=== PATIENT | female | born 1990 | race Hispanic/Latino ===

== ENCOUNTER 2023-11-05 03:38 | Emergency (ER) | payer OTHER ==
[2023-11-05] MEDS ORDERED: ACETAMINOPHEN 500 MG TAB ONE (03:50)
[2023-11-05] MEDS ORDERED: MORPHINE 2 MG/ML SYR ONE ×2 (03:50→06:48)
[2023-11-05] MEDS ORDERED: ONDANSETRON 4 MG/2 ML VIAL ONE ×2 (03:50→04:15)
[2023-11-05] MEDS ORDERED: NA CHLORIDE 0.9% 1,000 ML ONE ×2 (03:51→04:16)
[2023-11-05] MEDS ORDERED: MORPHINE 4 MG/ML SYR ONE ×2 (04:16→05:32)
[2023-11-05 04:17] LABS: Specific Gravity 1.012 (1.005-1.030); Urine Bacteria <20 /HPF (<20); Urine Bilirubin NEGATIVE (Negative); Urine Blood Negative (Negative); Urine Clarity Extremely Turbid (Clear); Urine Color Colorless (Yellow); Urine Culture Reflex Order REFLEXED; Urine Glucose NEGATIVE (Negative); Urine Ketones NEGATIVE (Negative); Urine Microscopic Reflex YN ORDER UMIC; Urine Mucus Slight /HPF (None Seen); Urine Nitrite NEGATIVE (Negative); Urine Protein NEGATIVE (Negative); Urine RBC <5 /HPF (None Seen); Urine Urobilinogen Normal (Normal); Urine Yeast (Budding) Trace /HPF (None Seen)
[2023-11-05 04:20] LABS: Absolute Eosinophils 0.1 K/uL (0-0.5); Absolute Lymphocytes (CBC) 2.6 K/uL (0.7-4.9); Absolute Monocytes 0.8 K/uL (0.1-1.3); Basophils % 0.3 % (0-1.3); Hematocrit 32.8 % (36.0-45.0); Lymphocytes % 22.5 % (15.3-44.8); MCH 30.4 pg (27.0-35.0); MCHC 33.7 g/dL (32.0-36.0); MCV 90.2 fL (80-100); MPV 8.5 fL (7.6-11.3); Monocytes % 6.8 % (3.3-12.3); Neutrophils % 69.4 % (41.7-73.7); Platelets 222 thou/uL (152-406); RBC Red Blood Cell Count 3.64 M/uL (3.86-4.86); Red Cell Distribution Width 13.4 % (12.1-15.2)
[2023-11-05 04:29] LABS: Albumin 2.8 g/dL (3.4-5.0); Albumin/Globulin Ratio 0.7 (1.1-1.8); Anion Gap 9.7 mEq/L (5.0-15.0); Bilirubin Total 0.2 mg/dL (0.2-1.0); Globulin 4.3 g/dL (2.3-3.5); Potassium 3.7 mEq/L (3.5-5.1); Protein, Total 7.1 g/dL (6.4-8.2)
[2023-11-05] MEDS ORDERED: CEFTRIAXONE 1000 MG/VIAL ONE (05:05)
[2023-11-05] MEDS ORDERED: TAMSULOSIN 0.4 MG SR CAP ONE (05:32)
--- NOTE | 2023-11-05 06:10 | EDPHYS ---
Physician Documentation [facility] Name: Maryam Lira Age: 33 yrs Sex: Female : 1990 Arrival Date: 11/05/2023 Time: 03:38 Bed 8 Private MD: SOLANGE Physician Walter Loja HPI: 11/04 03:51 This 33 yrs old Female presents to ER via Unassigned with complaints of 30 WKS sp4 GESTATION, Abdominal Pain, Back Pain. 03:51 33-year-old female -0-0-3 at 30 weeks 4 days EGA, presents with complaint of acute sp4 onset right flank pain starting 1:45 AM associated with nausea. Right flank pain that radiates down to the right lower abdomen. Patient denied contractile type pain, patient denied vaginal bleeding or leakage of amniotic fluid. Patient's MULTIMEDIA SERVICES COORDINATOR is at [facility] Dr. Sylvie Zayas MD at [phone] . Historical: - Allergies: 03:57 No Known Allergies; ss - Home Meds: 03:57 None [Active]; ss - PMHx: 03:57 None; ss - PSHx: 03:57 breast augmentation; ss - Immunization history:: Client reports having NOT received the Covid vaccine. - Infectious Disease History:: Denies. - Family history:: not pertinent. - Social history:: Smoking status: Patient denies any tobacco usage or history of. ROS: 03:52 Constitutional: Negative for fever, chills, and weight loss, Positive Right flank sp4 pain, and positive nausea 03:52 All other systems are negative, Exam: 03:52 Constitutional: This is a well developed, well nourished patient who is awake, alert, sp4 and in no acute distress. Head/Face: Normocephalic, atraumatic. Eyes: Pupils equal round and reactive to light, extra-ocular motions intact. Lids and lashes normal. Conjunctiva and sclera are not injected. Cornea within normal limits. Periorbital areas with no swelling, redness, or edema. ENT: Nares patent. No nasal discharge, no septal abnormalities noted. Tympanic membranes are normal and external auditory canals are clear. Oropharynx with no redness, swelling, or masses, exudates, or evidence of obstruction, uvula midline. Mucous membranes moist. Neck: Trachea midline, no thyromegaly or masses palpated, and no cervical lymphadenopathy. Supple, full range of motion without nuchal rigidity, or vertebral point tenderness. Chest/axilla: Normal chest wall appearance and motion. Nontender with no deformity. No lesions are appreciated. Cardiovascular: Regular rate and rhythm with a normal S1 and S2. No gallops, murmurs, or rubs. Normal PMI, no JVD. No pulse deficits. Respiratory: Lungs have equal breath sounds bilaterally, clear to auscultation and percussion. No rales, rhonchi or wheezes noted. No increased work of breathing, no retractions or nasal flaring. Abdomen/GI: Soft, with normal bowel sounds. No distension or tympany. No guarding or rebound. No evidence of tenderness throughout. Positive Gravid Uterus Back: No spinal tenderness. No costovertebral tenderness. MS/ Extremity: Pulses equal, no cyanosis. Neurovascular intact. Full, normal range of motion. Neuro: Awake and alert, GCS 15, oriented to person, place, time, and situation. Cranial nerves II-XII grossly intact. Motor strength 5/5 in all extremities. Sensory grossly intact. Psych: Awake, alert, with orientation to person, place and time. 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 No sign of active labor., Vital Signs: 03:55 BP 123 / 67; Pulse 83; Resp 18; Temp 97.7(TE); Pulse Ox 100% on R/A; Weight 77.11 kg; ss Height 5 ft. 3 in. ; Pain 7/10; 05:05 BP 106 / 66; Pulse 83; Resp 19; Pulse Ox 100% ; jj7 06:00 BP 113 / 64; Pulse 88; Resp 19 S; Pulse Ox 100% on R/A; ha1 06:46 BP 101 / 53; Pulse 89; Resp 17; Pulse Ox 100% ; jj7 07:15 BP 122 / 76; Pulse 88; Resp 16 S; Pulse Ox 100% on R/A; aa5 03:55 Body Mass Index 30.11 (77.11 kg, 160.02 cm) 03:55 Pain Scale: Adult ss Torito Coma Score: 03:52 Eye Response: spontaneous(4). Motor Response: obeys commands(6). Verbal Response: sp4 oriented(5). Total: 15. MDM: 03:49 Patient medically screened. sp4 03:53 Differential diagnosis: Hydronephrosis Peptic Ulcer Pyelonephritis Scoliosis. sp4 Data reviewed: vital signs, nurses notes, old medical records, lab test result(s), radiologic studies, ultrasound. 05:40 ED course: PROCEDURE: US RETROPERITONEUM INDICATION: Right flank pain, evaluate for sp4 hydronephrosis TECHNIQUE: Grayscale, color Doppler evaluation of the kidneys and urinary bladder. COMPARISON: None FINDINGS: RIGHT KIDNEY: Dimension: 13.3 x 6.5 x 5.8 cm. Cortex: Normal cortical echogenicity. No focal thinning. Hydronephrosis: Moderate to severe dilatation of renal pelvis and intrarenal collecting system. The renal pelvis measures up to 2.4 cm in transverse dimension. Stones: None. Cyst/masses: None. LEFT KIDNEY: Dimension: 2.5 x 4.7 x 5.6 cm. Cortex: Normal cortical echogenicity. No focal thinning. Hydronephrosis: None. Stones: None. Cyst/masses: None. BLADDER: Wall: Normal. Contents: Normal. No ureterocele. No debris. IMPRESSION: Moderate to severe right hydronephrosis. Electronically signed by: Jody Schulz MD 11/05/2023 05:33 AM. 06:05 ED course: EXAM: US , Limited CLINICAL HISTORY: The patient is 33 years old sp4 and is Female; 30 weeks and 4 days, back pain TECHNIQUE: Real-time limited ultrasound of the maternal uterus with image documentation. COMPARISON: No relevant prior studies available. FINDINGS: Fetus: Single fetus. FL: Femur length 5.9 cm. Position: Cephalic presentation. Heart rate: Heart rate 138 to 147 bpm. Placenta: Posterior placenta. Amniotic fluid: NAZARIO 10.5 cm. IMPRESSION: Single live fetus with EGA 38 weeks and four days. Electronically signed by: Kiara Petty MD 11/05/2023 05:46 AM. 06:05 Consideration of Admission/Observation Escalation of care including sp4 admission/observation considered. ED course: Patient was discussed with MULTIMEDIA SERVICES COORDINATOR at [facility], and accepted for transfer for assessment at [facility] OB emergency unit. . 11/04 03:45 Order name: CBC with Diff; Complete Time: 04:33 sp4 11/04 03:45 Order name: CMP; Complete Time: 04:33 sp4 11/04 03:45 Order name: Lipase; Complete Time: 04:33 sp4 11/04 03:45 Order name: Urinalysis w/ reflexes; Complete Time: 04:33 sp4 11/04 04:22 Order name: Urine Culture EDMS 11/04 03:46 Order name: US OB Limited sp4 11/04 03:47 Order name: US Rp Exam Complete sp4 11/04 03:45 Order name: IV Saline Lock; Complete Time: 03:58 sp4 11/04 03:45 Order name: Labs collected and sent; Complete Time: 03:58 sp4 Administered Medications: 03:57 Drug: NS 0.9% IV 1000 ml IV at 1 bolus Per protocol; 1000 mL bolus Route: IV; Rate: 1 jj7 bolus; Site: right antecubital; 05:14 Follow up: IV Status: Completed infusion jj7 03:57 Drug: Acetaminophen PO 500 mg PO once Route: PO; jj7 05:15 Follow up: Response: Pain is decreased jj7 03:58 Drug: morphine IVP or IV 2 mg IVP once over 4 mins Route: IVP; Infused Over: 4 mins; j7 Site: right antecubital; 04:20 Follow up: Response: Pain is unchanged, physician notified jj7 03:58 Drug: Ondansetron IVP 4 mg IVP once; over 2 minutes Route: IVP; Site: right antecubital;j7 04:18 Drug: Ondansetron IVP 4 mg IVP once; over 2 minutes Route: IVP; Site: right antecubital;[facility] 05:15 Follow up: Response: No adverse reaction jj7 04:21 Drug: NS 0.9% IV 1000 ml IV at 125 ml/hr continuous Route: IV; Rate: 125 ml/hr; Site: ha1 right antecubital; 07:33 Follow up: IV Status: Infusion continued upon transfer aa5 04:21 Drug: morphine IVP or IV 4 mg IVP once over 4 mins Route: IVP; Infused Over: 4 mins; [facility] Site: right antecubital; 04:35 Follow up: Response: Pain is decreased jj7 05:14 Drug: Rocephin - Rocephin (cefTRIAXone) IVPB 1 grams IVPB once over 30 mins; (mix in 50 ha1 mL NS) Route: IVPB; Infused Over: 30 mins; Site: right antecubital; 05:30 Follow up: IV Status: Completed infusion jj7 05:35 Drug: morphine IVP or IV 4 mg IVP once over 4 mins Route: IVP; Infused Over: 4 mins; jj7 Site: right antecubital; 06:00 Follow up: Response: Pain is decreased jj7 05:35 Drug: Flomax PO 0.4 mg PO once Route: PO; jj7 06:46 Follow up: Response: No adverse reaction jj7 06:50 Drug: morphine IVP or IV 2 mg IVP once over 4 mins Route: IVP; Infused Over: 4 mins; jj7 Site: right antecubital; 07:00 Follow up: Response: Pain is decreased jj7 07:29 Drug: HYDROmorphone IVP 0.5 mg IVP once Route: IVP; Site: right antecubital; aa5 07:33 Follow up: Response: No adverse reaction aa5 Disposition Summary: 11/05/23 06:09 Transfer Ordered Notes: Transfer Location: [facility] sp4 Reason: Higher level of care sp4 Condition: Fair sp4 Problem: new sp4 Symptoms: have improved sp4 Accepting Physician: [facility] Attending SOAPING MACHINE BACK TENDER (11/05/23 07:36) aa5 Diagnosis - 30 weeks 4 days EGA, acute right flank pain, acute right sp4 hydronephrosis, Acute right ureteral calculus Forms: - Medication Reconciliation Form sp4 - SBAR form sp4 Signatures: Dispatcher [employer] EDWalter Gotti MD MD cha Calderon, Audri, RN RN aa5 Alesia Pacheco RN RN ss Ayala, Heidy, RN RN ha1 Kenrick Figueroa RN RN jj7 Tomas Garcia MD MD sp4 Corrections: (The following items were deleted from the chart) 07:36 06:09 [facility] Attending SOAPING MACHINE BACK TENDER sp4 aa5
--- NOTE | 2023-11-05 06:10 | ER ---
Nurse's Notes [facility] Name: Maryam Lira Age: 33 yrs Sex: Female : 1990 Arrival Date: 11/05/2023 Time: 03:38 Bed 8 Private MD: Diagnosis: 30 weeks 4 days EGA, acute right flank pain, acute right hydronephrosis, Acute right ureteral calculus Presentation: 11/04 03:55 Chief complaint: Patient states: R sided flank pain that radiates to R lower abd that ss began approximately 2 hours ago. Pt reports she is 30 weeks . Coronavirus screen: Client denies travel out of the [place] in the last 14 days. Ebola Screen: Patient denies exposure to infectious person. Patient denies travel to an Ebola-affected area in the 21 days before illness onset. Initial Sepsis Screen: Does the patient meet any 2 criteria? No. Patient's initial sepsis screen is negative. Does the patient have a suspected source of infection? No. Patient's initial sepsis screen is negative. Risk Assessment: Do you want to hurt yourself or someone else? Patient reports no desire to harm self or others. Onset of symptoms was November 05, 2023. 03:55 Method Of Arrival: Ambulatory ss 03:55 Acuity: HILDA 3 ss Triage Assessment: 03:57 General: Appears uncomfortable, Behavior is calm, cooperative. Pain: Complains of pain ss in R flank Pain radiates to right lower quadrant. Neuro: Level of Consciousness is awake, alert, obeys commands. Respiratory: Respiratory effort is even, unlabored. Historical: - Allergies: 03:57 No Known Allergies; ss - Home Meds: 03:57 None [Active]; ss - PMHx: 03:57 None; ss - PSHx: 03:57 breast augmentation; ss - Immunization history:: Client reports having NOT received the Covid vaccine. - Infectious Disease History:: Denies. - Family history:: not pertinent. - Social history:: Smoking status: Patient denies any tobacco usage or history of. Screenin:58 [facility] ED Fall Risk Assessment (Adult) History of falling in the last 3 months, jj7 including since admission No falls in past 3 months (0 pts) Confusion or Disorientation No (0 pts) Intoxicated or Sedated No (0 pts) Impaired Gait No (0 pts) Mobility Assist Device Used No (0 pt) Altered Elimination No (0 pt) Score/Fall Risk Level 0 - 2 = Low Risk Oriented to surroundings, Maintained a safe environment, Educated pt \T\ family on fall prevention, incl call for assistance when getting out of bed, Assessed \T\ reinforced patient's understanding of fall precautions. Abuse screen: Denies threats or abuse. Nutritional screening: No deficits noted. Tuberculosis screening: No symptoms or risk factors identified. Assessment: 03:55 General: Appears in no apparent distress. uncomfortable, Behavior is calm, cooperative, jj7 appropriate for age. GI: Reports RIGHT SIDED FLANK PAIN THAT RADIATES TO THE FRONT. 03:55 GI: Abd is soft and non tender X 4 quads. jj7 05:54 Reassessment: Dr. Lux on the phone with OB at [place] at this time for Doc to Doc ss report. 06:00 Reassessment: Patient and/or family updated on plan of care and expected duration. Pain ha1 level reassessed. Patient is alert, oriented x 3, equal unlabored respirations, skin warm/dry/pink. 06:07 Reassessment: Administrative approval given by VALENCIA Cochran. Pt to go to [facility] OB ss triage. 06:45 Reassessment: REPORT GIVEN TO NOEL NOEL RN AT [facility]. jj7 07:10 Reassessment: Patient is alert, oriented x 3, equal unlabored respirations, skin aa5 warm/dry/pink. Patient states symptoms have not improved. Pt c/o right flank pain, denies nausea. . Pain: Pain currently is 7 out of 10 on a pain scale. 07:26 Reassessment: EMS at bedside . aa5 07:33 Reassessment: Patient is alert, oriented x 3, equal unlabored respirations, skin aa5 warm/dry/pink. Vital Signs: 03:55 BP 123 / 67; Pulse 83; Resp 18; Temp 97.7(TE); Pulse Ox 100% on R/A; Weight 77.11 kg; ss Height 5 ft. 3 in. ; Pain 7/10; 05:05 BP 106 / 66; Pulse 83; Resp 19; Pulse Ox 100% ; jj7 06:00 BP 113 / 64; Pulse 88; Resp 19 S; Pulse Ox 100% on R/A; ha1 06:46 BP 101 / 53; Pulse 89; Resp 17; Pulse Ox 100% ; jj7 07:15 BP 122 / 76; Pulse 88; Resp 16 S; Pulse Ox 100% on R/A; aa5 03:55 Body Mass Index 30.11 (77.11 kg, 160.02 cm) ss 03:55 Pain Scale: Adult ss Torito Coma Score: 03:52 Eye Response: spontaneous(4). Motor Response: obeys commands(6). Verbal Response: sp4 oriented(5). Total: 15. ED Course: 03:39 Patient arrived in ED. jj6 03:44 Tomas Garcia MD is Attending Physician. sp4 03:55 No provider procedures requiring assistance completed. jj7 03:56 Triage completed. ss 03:57 Arm band placed on right wrist. ss 03:58 Patient has correct armband on for positive identification. Placed in gown. Bed in low jj7 position. Call light in reach. Side rails up X 1. Adult w/ patient. Provided Education on: USE OF CALL OLIVEIRA. Warm blanket given. 03:58 CBC with Diff Sent. jj7 03:58 CMP Sent. jj7 03:58 Lipase Sent. jj7 03:58 Urinalysis w/ reflexes Sent. jj7 03:58 Inserted saline lock: 20 gauge in right antecubital area, using aseptic technique. jj7 Blood collected. Flushed with 10 mL NS. 04:48 initiated transfer to [facility] spoke with Sammie. vk 04:54 US OB Limited In Process Unspecified. EDMS 04:54 US Rp Exam Complete In Process Unspecified. EDMS 05:46 called transfer to get update stated that had gotten called in to do an emergency c- vk section will call when able. 06:06 Assist provider with pelvic exam: Performed by Tomas Garcia MD Patient tolerated jj7 well. BIMANUAL CERVIX EXAM FOR DILATION. 07:01 Alesia Pacheco, RN is Primary Nurse. ss 07:01 Patient transferred, IV remains in place. jj7 07:25 Attending Physician role handed off by Tomas Garcia MD kyraa 07:25 Walter Loja MD is Attending Physician. [facility] 08:20 [phone] called [facility] for Transfer talked to Yaz- pat no trucks until after 8 sp am. 0649 called [facility] talked to Meaghan. Administered Medications: 03:57 Drug: NS 0.9% IV 1000 ml IV at 1 bolus Per protocol; 1000 mL bolus Route: IV; Rate: 1 jj7 bolus; Site: right antecubital; 05:14 Follow up: IV Status: Completed infusion j7 03:57 Drug: Acetaminophen PO 500 mg PO once Route: PO; j7 05:15 Follow up: Response: Pain is decreased j7 03:58 Drug: morphine IVP or IV 2 mg IVP once over 4 mins Route: IVP; Infused Over: 4 mins; j7 Site: right antecubital; 04:20 Follow up: Response: Pain is unchanged, physician notified j 03:58 Drug: Ondansetron IVP 4 mg IVP once; over 2 minutes Route: IVP; Site: right antecubital;j 04:18 Drug: Ondansetron IVP 4 mg IVP once; over 2 minutes Route: IVP; Site: right antecubital;[facility] 05:15 Follow up: Response: No adverse reaction j7 04:21 Drug: NS 0.9% IV 1000 ml IV at 125 ml/hr continuous Route: IV; Rate: 125 ml/hr; Site: ha1 right antecubital; 07:33 Follow up: IV Status: Infusion continued upon transfer aa5 04:21 Drug: morphine IVP or IV 4 mg IVP once over 4 mins Route: IVP; Infused Over: 4 mins; ha1 Site: right antecubital; 04:35 Follow up: Response: Pain is decreased j7 05:14 Drug: Rocephin - Rocephin (cefTRIAXone) IVPB 1 grams IVPB once over 30 mins; (mix in 50 ha1 mL NS) Route: IVPB; Infused Over: 30 mins; Site: right antecubital; 05:30 Follow up: IV Status: Completed infusion j7 05:35 Drug: morphine IVP or IV 4 mg IVP once over 4 mins Route: IVP; Infused Over: 4 mins; jj7 Site: right antecubital; 06:00 Follow up: Response: Pain is decreased j7 05:35 Drug: Flomax PO 0.4 mg PO once Route: PO; jj7 06:46 Follow up: Response: No adverse reaction jj7 06:50 Drug: morphine IVP or IV 2 mg IVP once over 4 mins Route: IVP; Infused Over: 4 mins; jj7 Site: right antecubital; 07:00 Follow up: Response: Pain is decreased jj7 07:29 Drug: HYDROmorphone IVP 0.5 mg IVP once Route: IVP; Site: right antecubital; aa5 07:33 Follow up: Response: No adverse reaction aa5 Medication: 03:55 VIS not applicable for this client. jj7 Outcome: 06:09 ER care complete, transfer ordered by MD. vila 07:00 Condition: improved j7 07:33 Transferred by ground EMS to [facility], Transfer form completed. Note: aa5 Report given to [facility] 07:33 Condition: stable 07:33 Instructed on the need for transfer, Demonstrated understanding of instructions, 07:36 Patient left the ED. aa5 Signatures: Dispatcher [employer] EDMS Walter Loja MD MD cha Pinkerton, Shawna sp Calderon, Audri RN RN aa5 Alesia Pacheco RN RN ss Jeffries, Jennifer jj6 Sherly Rubio RN RN haKenrick Majano RN RN jj7 Tomas Garcia MD MD sp4 Hollie Nunes
[2023-11-05] MEDS ORDERED: HYDROMORPHONE HCL 0.5 MG/0.5 ML INJ ONE (07:27)
[2023-11-05 07:40] VITALS: TEMP 97.7; O2SAT 100
[2023-11-05 07:47] VITALS: BP 122/76
--- NOTE | 2023-11-05 16:18 | RAD REPORT ---
EXAM DESCRIPTION: US - OB Limited - 11/05/2023 5:03 am CLINICAL HISTORY: The patient is 33 years old and is Female; 30 weeks and 4 days, back pa in TECHNIQUE: Real-time limited ultrasound of the maternal uterus with image documentation. COMPARISON: No relevant prior studies available. FINDINGS: Fetus: Single fetus. FL: Femur length 5.9 cm. Position: Cephalic presentation. Heart rate: Heart rate 138 to 147 bpm. Placenta: Posterior placenta. Amniotic fluid: NAZARIO 10.5 cm. IMPRESSION: Single live fetus with EGA 38 weeks and four days. Electronically signed by: Kiara Petty MD 11/05/2023 05:46 AM CDT RP ND Due to temporary technical issues with the PACS/Fluency reporting system, reports are being signed by the in house radiologists without review as a courtesy to insure prompt reporting. The interpreting radiologist is fully responsible for the content of the report.
--- NOTE | 2023-11-05 16:34 | RAD REPORT ---
EXAM DESCRIPTION: US - Renal Ultrasound-Complete - 11/05/2023 4:52 am CLINICAL HISTORY: Right flank pain, evaluate for hydronephrosis TECHNIQUE: Grayscale, color Doppler evaluation of the kidneys and urinary bladder. COMPARISON: None FINDINGS: RIGHT KIDNEY: Dimension: 13.3 x 6.5 x 5.8 cm. Cortex: Normal cortical echogenicity. No focal thinning. Hydronephrosis: Moderate to severe dilatation of renal pelvis and intrarenal collecting system. The r enal pelvis measures up to 2.4 cm in transverse dimension. Stones: None. Cyst/masses: None. LEFT KIDNEY: Dimension: 2.5 x 4.7 x 5.6 cm. Cortex: Normal cortical echogenicity. No focal thinning. Hydronephrosis: None. Stones: None. Cyst/masses: None. BLADDER: Wall: Normal. Contents: Normal. No ureterocele. No debris. IMPRESSION: Moderate to severe right hydronephrosis. Electronically signed by: Jody Shculz MD 11/05/2023 05:33 AM [facility] Due to temporary technical issues with the PACS/Fluency reporting system, reports are being signed by the in house radiologists without review as a courtesy to insure prompt reporting. The interpreting radiologist is fully responsible for the content of the report.
== END 2023-11-05 07:36 | disposition short-term general hospital (02) ==
LOC: ER 03:38
DX: O99.891 Other specified diseases and conditions complicating pregnancy (principal); N13.2 Hydronephrosis with renal and ureteral calculous obstruction; Z3A.30 30 weeks gestation of pregnancy; Z98.82 Breast implant status
CPT/HCPCS: 87088; 85025; 81001; 87086; 36415; 83690; 80053; 76815; 76770; J2270 ×2; J1170; J2405 ×2; J7030 ×2; J0696